=== PATIENT | female | born 1990 | race African-American/Black ===

== ENCOUNTER 2020-03-23 23:47 | Emergency (ER) | payer SELFPAY ==
--- NOTE | 2020-03-23 23:58 | NUR ---
CALLED 3 TIMES NO ANSWER LEFT W/O BEING TRIAGED
== END 2020-03-23 23:59 | disposition left against medical advice (07) ==
LOC: ER 23:52
DX: Z75.3 Unavailability and inaccessibility of health-care facilities (principal)